=== PATIENT | male | born 1950 | race Caucasian/White ===

== ENCOUNTER → 2017-12-02 | Outpatient (CLI) | payer OTHER | LOC: BMCIMAGING 14:09 | PROVIDERS: ATTEND Physician Assistant | DX: M25.552 Pain in left hip (principal) ==

== ENCOUNTER → 2017-12-09 | Outpatient (CLI) | payer OTHER | LOC: BMCIMAGING 10:10 | PROVIDERS: ATTEND Physician Assistant | PROC: 3E0U3KZ Introduction of Other Diagnostic Substance into Joints, Percutaneous Approach (ICD-10-PCS; principal; 2017-12-09) | DX: M25.552 Pain in left hip (principal) ==

== ENCOUNTER → 2017-12-15 | Outpatient (CLI) | payer OTHER | LOC: BHFA 15:30 | PROVIDERS: ATTEND Internal Medicine Cardiovascular Disease | DX: I73.9 Peripheral vascular disease, unspecified (principal) ==

== ENCOUNTER → 2017-12-16 | Outpatient (CLI) | payer OTHER | LOC: BMCIMAGING 09:58 | PROVIDERS: ATTEND Orthopaedic Surgery Hand Surgery | DX: M25.552 Pain in left hip (principal) ==

== ENCOUNTER → 2018-01-24 | Outpatient (CLI) | payer OTHER ==
[~2018-01-24] MED LIST: IOPAMIDOL (ISOVUE-370) 150 ML BTL IV ONE
== END ==
LOC: FIMAGING 14:47
PROVIDERS: ATTEND Internal Medicine Cardiovascular Disease
DX: I70.203 Unspecified atherosclerosis of native arteries of extremities, bilateral legs (principal); I71.4 Abdominal aortic aneurysm, without rupture
CPT/HCPCS: 75635; Q9967

== ENCOUNTER 2018-02-03 07:38 | Day surgery (SDC) | payer OTHER ==
[~2018-02-03 07:38] MED LIST changes: +ASPIRIN EC 325 MG TAB PO ONE; +DIAZEPAM 5 MG TAB PO ONE; +FAMOTIDINE 20 MG TAB PO ONE; -IOPAMIDOL (ISOVUE-370) 150 ML BTL IV ONE; +NS 1,000 ML IV ONE; +diphenhydrAMINE 25 MG CAP PO ONE
--- NOTE | 2018-02-03 08:04 | CPEKG ---
Heart Rate: 64 RR Interval: 938 P-R Interval: 192 QRSD Interval: 116 QT Interval: 436 QTC Interval: 450 P [place]: 35 QRS [place]: 77 T Wave [place]: 27 EKG Severity - ABNORMAL ECG - EKG Impression: SINUS RHYTHM EKG Impression: NONSPECIFIC INTRAVENTRICULAR CONDUCTION DELAY Electronically Signed By: Tomás Brown 03-Feb-2018 12:45:34
[2018-02-03] MEDS ORDERED: DIAZEPAM 5 MG TAB ONE (08:05)
[2018-02-03] MEDS ORDERED: FAMOTIDINE 20 MG TAB ONE (08:05)
[2018-02-03] MEDS ORDERED: diphenhydrAMINE 25 MG CAP PO ONE (08:05)
[2018-02-03] MEDS ORDERED: ASPIRIN EC 325 MG TAB PO ONE (08:05)
[2018-02-03 08:24] LABS: PLATELET COUNT 132 10^3/uL (150-400)
[2018-02-03 08:32] LABS: INR 1.06 (0.83-1.16)
[2018-02-03] MEDS ORDERED: LIDOCAINE 1% 300 MG/30 ML SDV ONE (11:28)
[2018-02-03] MEDS ORDERED: fentaNYL 100 MCG/2 ML INJ ONE (11:29)
[2018-02-03] MEDS ORDERED: MIDAZOLAM 2 MG/2 ML VIAL ONE ×2 (11:29)
[2018-02-03] MEDS ORDERED: IOPAMIDOL (ISOVUE-300) 150 ML BTL ONE (11:30)
--- NOTE | 2018-02-03 12:04 | PDPROPOC ---
Sedation Plan of Care Sedation Plan of Care: vital signs stable, mental status noted, patient educated of risks, benefits, alternatives, patient can tolerate sedation ASA Classification: ASA 2 Planned drugs: fentanyl, midazolam Mallampati Score: Class 2 Mallampati Reference Image: Patient passed 3-3-2 rule?: Yes
--- NOTE | 2018-02-03 12:04 | PDHPUP ---
History & Physical Update H&P update statement: This history and physical update is based on an assessment of the patient which was completed after admission or registration (within 24 hours), but prior to the surgery/procedure. H&P update: H&P reviewed & patient examined, no change in patient's condition since H&P completed
[2018-02-03] MEDS ORDERED: ONDANSETRON 4 MG/2 ML VIAL IVP PRN (13:27)
[2018-02-03] MEDS ORDERED: ATROPINE SULFATE 1 MG/10 ML SYR IVP PRN (13:27)
[2018-02-03] MEDS ORDERED: NITROGLYCERIN 0.4 MG BTL SL PRN (13:27)
--- NOTE | 2018-02-03 15:30 | CPIP ---
[f rep st] INVASIVE CARDIAC PROCEDURE DATE OF PROCEDURE: 02/03/2018 PROCEDURES PERFORMED: 1. Abdominal aortography. 2. Right lower extremity angiography via contralateral approach with catheter placed in the right ex ternal iliac artery. 3. Left lower extremity angiography via ipsilateral approach with catheter placed in the left common iliac artery. INDICATION: 1. Left hip and thigh pain concerning for claudication. 2. Abnormal CHAVO with moderate peripheral vascular disease of the left lower extremity. 3. Known peripheral vascular disease. ACCESS: The patient was prepped and draped in sterile fashion; 1% lidocaine was used to anesthetize the left inguinal region. A 6-[place] introducer sheath was placed selectively into the left common f emoral artery via modified Seldinger technique. Abdominal aortography: A 6-[place] pigtail catheter was advanced into the distal abdominal aorta and p osition verified by angiography. Images were obtained via power injection through the tado system. There was a single right renal artery as well as a single left renal artery coming off the abdomina l aorta. The arteries were free of any significant disease. In the distal abdominal aorta just prio r to the bifurcation of the right and left common iliac arteries, there was aneurysmal dilation that appeared to approach 3.5 cm in severity. Left lower extremity angiography via ipsilateral approach wi th catheter placed in the left common iliac artery. The 6-[place] pigtail catheter was exchanged for a straight flush catheter which was placed in the left common iliac artery and images obtained. The left common iliac artery bifurcated into the internal iliac artery and external iliac arteries. Ther e was an ostial 25% stenosis of the left common iliac artery. There was an ostial 90% stenosis of th e left internal iliac artery. There was a 40% mid to distal stenosis of the left external iliac rodrigo ry. Pullback was then performed which demonstrated no significant gradient. The remainder of the lef t lower extremity was imaged via hand injection through the 6-[place] introducer sheath. The left com mon femoral artery bifurcated into the superficial femoral artery and profunda femoral arteries. The left common femoral artery had a mid 20% stenosis present. The left profunda femoral artery is free of any significant disease. The left superficial femoral artery had sequential 80% stenosis in the mid to distal segments. The left superficial femoral artery then turned into the popliteal artery. T he popliteal artery appeared free of any significant disease. Below the knee, there was 2-vessel run off. Right lower extremity angiography via contralateral approach with catheter placed in the right external iliac artery. A Contra 2 catheter was advanced into the distal abdominal aorta and reformed into its usual position. It was used to selectively engage the right common iliac artery. The righ t common iliac artery bifurcated into internal iliac artery and external iliac arteries. The ostial segment of the right common iliac artery had a 40% eccentric stenosis present. The right internal ana ac artery had a 50% ostial stenosis present. The right external iliac artery had a proximal 40% steno sis present. The Contra 2 catheter was then exchanged for a straight flush catheter which was placed in the external iliac artery. The right external iliac artery turned into the common femoral artery . The common femoral artery had a 50% stenosis present. It then bifurcated into the superficial fem oral artery and profunda femoral arteries. The profunda femoral artery is free of any significant di sease. The right superficial femoral artery is diffusely diseased with stenosis approaching 40%. Th e right superficial femoral artery then turned into the popliteal artery. The popliteal artery was f ree of any significant disease. Below the knee, there is single-vessel runoff. COMPLICATIONS: None. CONCLUSIONS: 1. Aneurysmal distal abdominal aorta approaching 3.5 cm in size. 2. Moderate disease involving the left common iliac artery, left external iliac artery and left comm on femoral arteries without significant gradient on pullback. 3. Sequential 80% stenoses in the distal left superficial femoral artery. 4. Moderate disease of the right common iliac artery, right external iliac artery and right common f emoral arteries without any significant gradient on pullback. 5. Moderate diffuse disease of the right superficial femoral artery with single-vessel runoff. /[id number]/MODL
[2018-02-03 18:42] VITALS: BP 143/81
== END 2018-02-03 19:01 | disposition home or self-care (01) ==
LOC: FCATH 07:38
PROVIDERS: ATTEND Internal Medicine Cardiovascular Disease
PROC: B40D1ZZ Plain Radiography of Aorta and Bilateral Lower Extremity Arteries using Low Osmolar Contrast (ICD-10-PCS; principal; 2018-02-03)
DX: I71.4 Abdominal aortic aneurysm, without rupture (principal); I70.212 Atherosclerosis of native arteries of extremities with intermittent claudication, left leg; I70.201 Unspecified atherosclerosis of native arteries of extremities, right leg; I10 Essential (primary) hypertension; E78.5 Hyperlipidemia, unspecified; J44.9 Chronic obstructive pulmonary disease, unspecified; Z85.820 Personal history of malignant melanoma of skin; Z95.1 Presence of aortocoronary bypass graft
CPT/HCPCS: 36140; 36245; 75625; 75716; 93005; C1769; J1644; J2250; J3010; Q9967